=== PATIENT | female | born 1980 | race Hispanic/Latino ===

== ENCOUNTER 2019-08-27 09:44 | Emergency (ER) | payer MEDICAID ==
[~2019-08-27] VITALS: Ht 154.9 cm; Wt 104.0 kg
[~2019-08-27 09:44] MED LIST: AMOXICILLIN500 M2 PO; AMOXICILLIN500 MG PO; BACTRIM DS1 TAB PO; LORTAB 5/3255 MG PO; NAPROXEN500 MG PO; NO HOME MEDS; ULTRAM50 M1 PO
[2019-08-27 10:54] LABS: ANION GAP 12 (6-22 (CALC)); BILIRUBIN, TOTAL 0.2 mg/dL (0.0-1.4); BUN 12 mg/dL (7-17); BUN/CREATININE RATIO 18 (12-20 (CALC)); CARBON DIOXIDE 26 mmol/l (22-30); CHLORIDE 103 mmol/l (95-108); CREATININE 0.7 mg/dL (0.5-1.0); GFR > 60 ML/MIN (>=60 (CALC)); GFR FOR AFR.AMER. > 60 ML/MIN (>=60 (CALC)); IMMATURE GRANULOCYTES 0.3 % (0.0-5.0); MEAN CELL VOLUME 89.2 fL CALC (80.0-100.0); MEAN CORPUSCULAR HGB 29.9 pG CALC (26.0-32.0); MEAN CORPUSCULAR HGB CONC 33.6 g/dL CAL (32.0-36.0); NEUT# 2.5 thou/uL (2.00-7.15); POTASSIUM 4.1 mmol/l (3.5-5.1); RED BLOOD COUNT 4.81 mill/uL (4.20-5.60); RED CELL DISTRI WIDTH 12.9 % (11.5-15.5); SGOT/AST 24 u/l (14-36); SODIUM 136 mmol/l (137-146)
[2019-08-27 10:55] LABS: ALBUMIN 4.5 g/dL (3.2-5.0); ALKALINE PHOSPHATASE 67 u/l (38-126); TOTAL PROTEIN 7.3 g/dL (6.3-8.2)
[2019-08-27 10:56] LABS: HEMATOCRIT 42.9 % (37.0-47.0); HEMOGLOBIN 14.4 g/dl (12.0-16.0)
[2019-08-27 10:57] LABS: HCG SERUM/URINE (NEG/POS) NEGATIVE (NEGATIVE)
[2019-08-27 11:01] LABS: URINE BILIRUBIN - DIPSTICK NEGATIVE (NEGATIVE); URINE BLOOD DIPSTICK NEGATIVE (NEGATIVE); URINE COLOR YELLOW; URINE GLUCOSE - DIPSTICK NEGATIVE (NEGATIVE); URINE KETONE NEGATIVE (NEGATIVE); URINE LEUK ESTERASE NEGATIVE (NEGATIVE); URINE NITRITE - DIPSTICK NEGATIVE (Negative); URINE PROTEIN - DIPSTICK NEGATIVE (NEG-TRACE); URINE SPECIFIC GRAVITY 1.015; URINE UROBILINOGEN - DIPSTICK 0.2 E.U./dL (0.2)
[2019-08-27 11:43] VITALS: BP 140/73
[2019-08-27] MEDS ORDERED: FIORICET PO (11:45)
--- NOTE | 2019-08-30 10:37 | NUR ---
Call made to patient and reported COVID results to patient with confirmatino of name and . Instructed patient to [facility] and [facility] would be contacting her with further instructions. Patient states she is feeling better. Instructed patient to return to ED or her physician should she develop symptoms and call if any questions.
--- NOTE | 2019-09-03 11:11 | NUR ---
Spoke with patient regarding Covid results. Patient gave verbal authorization to make a copy of Covid result and to leave at [facility] for daughter Frieda Landers to [employer] and [employer].
== END 2019-08-27 11:56 | disposition home or self-care (01) ==
LOC: ED 09:44
PROVIDERS: Emergency Medicine
DX: U07.1 COVID-19 (principal)

== ENCOUNTER 2021-07-08 16:21 | Emergency (ER) | payer OTHER, MEDICAID ==
[~2021-07-08] VITALS: Ht 154.9 cm; Wt 111.0 kg
[~2021-07-08 16:21] MED LIST changes: +FIORICET PO
[2021-07-08 16:30] VITALS: BP 145/78
[2021-07-08] MEDS ORDERED: METHOCARBAMOL500 MG PO (19:03)
[2021-07-08] MEDS ORDERED: NAPROXEN500 MG PO (19:03)
== END 2021-07-08 19:10 | disposition home or self-care (01) | DRG 552 ==
LOC: ED 16:21
DX: S16.1XXA Strain of muscle, fascia and tendon at neck level, initial encounter (principal); F17.200 Nicotine dependence, unspecified, uncomplicated; V49.40XA Driver injured in collision with unspecified motor vehicles in traffic accident, initial encounter

== ENCOUNTER 2022-04-16 12:16 | Emergency (ER) | payer MEDICAID ==
[~2022-04-16] VITALS: Ht 154.9 cm; Wt 102.6 kg
[2022-04-16] VITALS (14 sets, daily range): BP systolic 87–126; BP diastolic 29–83
[~2022-04-16 12:16] MED LIST changes: +METHOCARBAMOL500 MG PO
[2022-04-16 16:24] LABS: BASO% 0.6 % (0-3); EOS% 0.6 % (0-8); IMMATURE GRANULOCYTES 0.2 % (0.0-5.0); LYMPH% 19.7 % (15-41); MEAN CELL VOLUME 89.2 fL CALC (80.0-100.0); MEAN CORPUSCULAR HGB 28.2 pG CALC (26.0-32.0); MEAN CORPUSCULAR HGB CONC 31.6 g/dL CAL (32.0-36.0); MONO% 8.9 % (2-13); NEUT# 5.91 thou/uL (2.00-7.15); RED BLOOD COUNT 4.26 mill/uL (4.20-5.60); RED CELL DISTRI WIDTH 13.4 % (11.5-15.5)
[2022-04-16 16:38] LABS: ALBUMIN 4.5 g/dL (3.2-5.0); ALKALINE PHOSPHATASE 100 u/l (38-126); ANION GAP 10 (6-22 (CALC)); BILIRUBIN, TOTAL 1.5 mg/dL (0.02-1.3); BUN 20 mg/dL (7-17); BUN/CREATININE RATIO 22 (12-20 (CALC)); CARBON DIOXIDE 34 mmol/l (22-30); CHLORIDE 96 mmol/l (95-108); CREATININE 0.9 mg/dL (0.5-1.0); GFR FOR AFR.AMER. > 60 ML/MIN (>=60 (CALC)); GFR OTHER RACES > 60 ML/MIN (>=60 (CALC)); POTASSIUM 3.2 mmol/l (3.5-5.1); SGOT/AST 41 u/l (14-36); SODIUM 137 mmol/l (137-146); TOTAL PROTEIN 7.4 g/dL (6.3-8.2)
[2022-04-16] MEDS ORDERED: PHENERGAN25 MG RE (17:56)
== END 2022-04-16 19:52 | disposition home or self-care (01) ==
LOC: ED 12:16
PROVIDERS: Emergency Medicine
DX: R11.2 Nausea with vomiting, unspecified (principal); Z98.84 Bariatric surgery status

== ENCOUNTER 2022-04-29 09:52 | Emergency (ER) | payer MEDICAID ==
[2022-04-29] VITALS (44 sets, daily range): BP systolic 78–267; BP diastolic 44–238
[~2022-04-29] VITALS: Ht 154.9 cm; Wt 102.0 kg
[~2022-04-29 09:52] MED LIST changes: +PHENERGAN25 MG RE
[2022-04-29 12:15] LABS: BASO% 0.4 % (0-3); EOS% 1.1 % (0-8); HEMATOCRIT 39.4 % (37.0-47.0); HEMOGLOBIN 13.1 g/dl (12.0-16.0); IMMATURE GRANULOCYTES 0.2 % (0.0-5.0); LYMPH% 28.5 % (15-41); MEAN CELL VOLUME 86.6 fL CALC (80.0-100.0); MEAN CORPUSCULAR HGB 28.8 pG CALC (26.0-32.0); MEAN CORPUSCULAR HGB CONC 33.2 g/dL CAL (32.0-36.0); MONO% 9.3 % (2-13); NEUT# 3.27 thou/uL (2.00-7.15); NEUT% 60.5 % (42-76); RED BLOOD COUNT 4.55 mill/uL (4.20-5.60); RED CELL DISTRI WIDTH 13.1 % (11.5-15.5)
[2022-04-29 13:21] LABS: ALBUMIN 4.4 g/dL (3.2-5.0); ALKALINE PHOSPHATASE 73 u/l (38-126); AMYLASE 65 u/l (30-110); BUN 11 mg/dL (7-17); BUN/CREATININE RATIO 12 (12-20 (CALC)); CHLORIDE 88 mmol/l (95-108); GFR FOR AFR.AMER. > 60 ML/MIN (>=60 (CALC)); GFR OTHER RACES > 60 ML/MIN (>=60 (CALC)); LIPASE 91 u/l (23-300); SODIUM 136 mmol/l (137-146); TOTAL PROTEIN 7.2 g/dL (6.3-8.2)
[2022-04-29 13:23] LABS: ANION GAP 10 (6-22 (CALC)); SGOT/AST 82 u/l (14-36)
[2022-04-29 13:24] LABS: POTASSIUM 2.2 mmol/l (3.5-5.1)
[2022-04-29 13:26] LABS: CARBON DIOXIDE 40 mmol/l (22-30)
== END 2022-04-29 22:39 | disposition short-term general hospital (02) ==
LOC: ED 09:52
PROVIDERS: Nurse Practitioner
DX: R11.2 Nausea with vomiting, unspecified (principal); E87.6 Hypokalemia; F17.200 Nicotine dependence, unspecified, uncomplicated; Z98.84 Bariatric surgery status

== ENCOUNTER 2023-08-26 10:06 | Emergency (ER) | payer SELFPAY ==
[~2023-08-26] VITALS: Ht 154.9 cm; Wt 90.7 kg
[2023-08-26 11:13] VITALS: BP 114/97
[2023-08-26 11:15] VITALS: BP 123/84
[2023-08-26 11:30] VITALS: BP 130/85
[2023-08-26 11:46] VITALS: BP 138/107
[2023-08-26] MEDS ORDERED: TOBREX OPTH5 ML/BTL OU (11:49)
[2023-08-26 12:00] VITALS: BP 127/80
== END 2023-08-26 12:18 | disposition home or self-care (01) | DRG 125 ==
LOC: ED 10:06
DX: T15.02XA Foreign body in cornea, left eye, initial encounter (principal); T15.01XA Foreign body in cornea, right eye, initial encounter; Z72.0 Tobacco use